=== PATIENT | female | born 1965 | race Caucasian/White ===

== ENCOUNTER → 2016-10-16 | Outpatient (CLI) | payer MEDICAID ==
--- NOTE | 2016-10-17 21:34 | MR ---
EXAMINATION TYPE: MR wrist RT wo con DATE OF EXAM: 10/16/2016 9:22 PM COMPARISON: No radiographic correlation available. HISTORY: 51-year-old female with right wrist pain for many years. TECHNIQUE: Multiplanar, multisequence images of the right wrist were obtained without IV contrast. FINDINGS: There is a small effusion within the radiocarpal and intercarpal joints. No osseous erosions are seen. There is some osteoarthritic changes at the first CMC joint and also at the triscaphe joint characterized by mild subchondral cystic change. In addition, there is an elongated multilocular ganglion cyst measuring 1.6 x 0.8 cm arising from the radial aspect of the radiocarpal joint extending along the volar aspect of the radius superficial to the pronator quadratus but deep to the flexor tendons. There is dramatic degenerative change at the pisiform triquetral joint with osseous edema throughout the pisiform and most of the triquetrum and large subchondral cystic change. There is [id number] ar ticulation with marked remodeling of the pisiform to a semilunar configuration, for example, refer to axial series 801 image 11 AXIAL oblique series 601 image 9. There is some degenerative signal seen within the volar lunotriquetral ligament and additional subcho ndral cystic change and focal bone marrow edema along the ulnar proximal aspect of the lunate bone. Slight positive ulnar variance is suggested. There is a large tear involving the articular disc of th e triangle fibrocartilage and moderate joint fluid within the distal radioulnar joint. There is a sma ll intrasubstance tear that involves the dorsal radioulnar ligament as well and moderate effusion col lecting within the prestyloid recess. Both the fluid in the prestyloid recess and within the distal r adioulnar joint show foci of intermediate signal intensity that could represent synovial proliferatio n or small cartilage fragments. Intermediate signal areas are present within the prestyloid recess Scapholunate ligament appears intact. There is trace tenosynovial fluid seen along the second, third, fourth, and sixth dorsal compartment tendons. Otherwise, the dorsal extensor and volar flexor tendons are within normal limits. The median nerve measures at the upper limits of normal in caliber at 12 sq mm and shows no abnormal fascicular thickening or edema. The visualized musculature is within normal limits. IMPRESSION: 1. Constellation of findings including focal edema and cystic change within the proximal ulnar aspect of the lunate, minimal positive ulnar variance, degenerative signal within the volar lunotriquetral ligament, and a large central tear of the TFC suggest ulnar impaction syndrome. 2. 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 3. Effusion and synovitis within the adjacent prestyloid recess. Additional effusion within the dista l radioulnar joint. Both of these show foci of intermediate signal that could represent chronic synov itis or tiny cartilaginous fragments. 4. A 1.6 x 0.8 cm elongated ganglion cyst along the volar aspect of the distal radius arising from th e radiocarpal joint and mild osteoarthritic changes at the basal joint of the thumb and triscaphe veronica nt.
== END | disposition home or self-care (01) ==
LOC: RADMRIMAIN 19:49
PROVIDERS: ATTEND Orthopaedic Surgery Hand Surgery
DX: M19.031 Primary osteoarthritis, right wrist (principal); M25.831 Other specified joint disorders, right wrist; M67.431 Ganglion, right wrist

== ENCOUNTER → 2017-04-25 | Outpatient (CLI) | payer MEDICAID ==
--- NOTE | 2017-04-25 14:28 | MM ---
Reason for exam: screening (asymptomatic). Last mammogram was performed 1 year and 3 months ago. History: Patient is postmenopausal. Taking estrogen beginning at age 49. Taking progesterone for 2 months beginning at age 45. Physical Findings: A clinical breast exam by your physician is recommended on an annual basis and results should be correlated with mammographic findings. MG 3D Screening Mammo W/Cad Bilateral CC and MLO view(s) were taken. Prior study comparison: January 23, 2016, bilateral MG 3d screening mammo w/cad. September 08, 2014, bilateral MG screening mammo w CAD. The breast tissue is heterogeneously dense. This may lower the sensitivity of mammography. Asymmetric breast tissue in the right breast upper quadrant, stable. There is no discrete abnormality. ASSESSMENT: Negative, BI-RAD 1 RECOMMENDATION: Routine screening mammogram of both breasts in 1 year.
== END | disposition home or self-care (01) ==
LOC: RADMAMWWP 12:54
PROVIDERS: ATTEND Obstetrics & Gynecology
DX: Z12.31 Encounter for screening mammogram for malignant neoplasm of breast (principal)
CPT/HCPCS: 77063; G0202

== ENCOUNTER → 2018-06-09 | Outpatient (CLI) | payer MEDICAID ==
--- NOTE | 2018-06-19 11:46 | MM ---
Reason for exam: screening (asymptomatic). Last mammogram was performed 1 year and 1 month ago. History: Patient is postmenopausal. Taking estrogen for 2 years beginning at age 49. Taking progesterone for 2 years 2 months beginning at age 45. Physical Findings: A clinical breast exam by your physician is recommended on an annual basis and results should be correlated with mammographic findings. MG 3D Screening Mammo W/Cad Bilateral CC and MLO view(s) were taken. Prior study comparison: April 25, 2017, bilateral MG 3d screening mammo w/cad. January 23, 2016, bilateral MG 3d screening mammo w/cad. The breast tissue is heterogeneously dense. This may lower the sensitivity of mammography. There is no discrete abnormality. ASSESSMENT: Negative, BI-RAD 1 RECOMMENDATION: Routine screening mammogram of both breasts in 1 year.
== END | disposition home or self-care (01) ==
LOC: RADMAMWWP 08:26
PROVIDERS: ATTEND Obstetrics & Gynecology
DX: Z12.31 Encounter for screening mammogram for malignant neoplasm of breast (principal)
CPT/HCPCS: 77063; 77067

== ENCOUNTER → 2018-07-17 | Outpatient (CLI) | payer MEDICAID ==
[2018-07-17 12:38] LABS: T4, Free (Free Thyroxine) 0.8 ng/dL (0.80-1.80)
== END | disposition home or self-care (01) ==
LOC: LABWHC1 06:56
PROVIDERS: ATTEND Clinical Nurse Specialist Women's Health
DX: E03.9 Hypothyroidism, unspecified (principal); Z78.0 Asymptomatic menopausal state
CPT/HCPCS: 36415; 84270; 84439; 84481; 84482

== ENCOUNTER → 2018-09-02 | Outpatient (CLI) | payer MEDICAID ==
[2018-09-02 17:13] LABS: T4, Free (Free Thyroxine) 0.9 ng/dL (0.80-1.80)
== END | disposition home or self-care (01) ==
LOC: LABWHC1 06:47
PROVIDERS: ATTEND Clinical Nurse Specialist Women's Health
DX: E03.9 Hypothyroidism, unspecified (principal)
CPT/HCPCS: 36415; 84439; 84481; 84482

== ENCOUNTER → 2018-10-24 | Outpatient (CLI) | payer MEDICAID | END | disposition home or self-care (01) | LOC: LABWHC1 06:56 | PROVIDERS: ATTEND Clinical Nurse Specialist Women's Health | DX: Z78.0 Asymptomatic menopausal state (principal) | CPT/HCPCS: 36415; 82670; 84144; 84403 ==

== ENCOUNTER → 2019-03-10 | Outpatient (CLI) | payer MEDICAID ==
[2019-03-10 16:32] LABS: T4, Free (Free Thyroxine) 0.9 ng/dL (0.80-1.80)
== END ==
LOC: LABWHC1 07:28
PROVIDERS: ATTEND Clinical Nurse Specialist Women's Health
DX: E03.9 Hypothyroidism, unspecified (principal)
CPT/HCPCS: 36415; 84439; 84481; 84482

== ENCOUNTER → 2019-07-22 | Outpatient (CLI) | payer MEDICAID ==
--- NOTE | 2019-07-23 12:19 | MM ---
Reason for exam: screening (asymptomatic). Last mammogram was performed 1 year and 1 month ago. History: Patient is postmenopausal. Taking estrogen for 3 years beginning at age 49. Taking progesterone for 3 years 2 months beginning at age 45. Took other hormone for 3 years. Physical Findings: A clinical breast exam by your physician is recommended on an annual basis and results should be correlated with mammographic findings. MG 3D Screening Mammo W/Cad Bilateral CC and MLO view(s) were taken. Prior study comparison: June 09, 2018, bilateral MG 3d screening mammo w/cad. April 25, 2017, bilateral MG 3d screening mammo w/cad. The breast tissue is heterogeneously dense. This may lower the sensitivity of mammography. No suspicious abnormality. No significant changes when compared with prior studies. ASSESSMENT: Negative, BI-RAD 1 RECOMMENDATION: Routine screening mammogram of both breasts in 1 year.
== END | disposition home or self-care (01) ==
LOC: RADMAMWWP 09:23
PROVIDERS: ATTEND Obstetrics & Gynecology
DX: Z12.31 Encounter for screening mammogram for malignant neoplasm of breast (principal)
CPT/HCPCS: 77063; 77067

== ENCOUNTER → 2019-12-08 | Outpatient (CLI) | payer MEDICAID ==
[2019-12-08 12:44] LABS: Estradiol 216.7 pg/mL; Prolactin 7.9 ng/mL (2.8-29.2)
[2019-12-08 12:59] LABS: Hemoglobin A1C 5.1 % (4.0-6.0)
== END | disposition home or self-care (01) ==
LOC: LABWHC1 06:56
PROVIDERS: ATTEND Obstetrics & Gynecology
DX: E03.9 Hypothyroidism, unspecified (principal); E34.9 Endocrine disorder, unspecified; Z78.0 Asymptomatic menopausal state
CPT/HCPCS: 36415; 82670; 83036; 84146; 84403; 84439; 84443; 84481; 84482

== ENCOUNTER 2020-02-03 08:32 | Emergency (ER) | payer MEDICAID ==
[2020-02-03 08:39] VITALS: RESP 18
[2020-02-03] MEDS ORDERED: SODIUM CHLORIDE 0.9% 1,000 ML IV STA (08:48)
--- NOTE | 2020-02-03 08:51 | ED ---
Abdominal Pain HPI - General Source: patient, RN notes reviewed Mode of arrival: ambulatory Limitations: no limitations <Chris Marlow - Last Filed: 02/03/20 10:54> <Padmini Nassar - Last Filed: 02/03/20 22:41> - General Chief Complaint: Abdominal Pain Stated Complaint: ABD pain Time Seen by Provider: 02/03/20 08:40 - History of Present Illness Initial Comments: 54-year-old female presents emergency Department chief complaint severe left lower quadrant abdominal pain. Patient states that she woke up this morning and did not feel well. Patient did have a bowel movement this morning and states it did not help. Patient states that she has minimal nausea no vomiting denies any fevers or chills. She states her last week she had some left flank pain but that has resolved. 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 There is concern about possible hernia. She did state that she contacted Dr. Joy, who did recommend her to come emergency department for evaluation. Patient has no mental dysuria but states that she has pressure in her lower abdomen. (Chris Marlow) - Related Data Home Medications Medication Instructions Recorded Confirmed Acetaminophen/Diphenhydramine 0.5 tab PO HS PRN 02/03/20 02/03/20 [Tylenol PM 500-25mg] Adk 1 tab PO Q48H 02/03/20 02/03/20 Dim 1 tab PO Q48H 02/03/20 02/03/20 Iodine 1 tab PO Q48H 02/03/20 02/03/20 Progesterone, Micronized 400 mg PO HS 02/03/20 02/03/20 [Progesterone] Thyroid,Pork [[place] Thyroid] 60 mg PO DAILY@1530 02/03/20 02/03/20 Thyroid,Pork [[place] Thyroid] 90 mg PO DAILY@0800 02/03/20 02/03/20 Previous Rx's Medication Instructions Recorded Nitrofurantoin Monohyd/M-Cryst 100 mg PO Q12HR #10 cap 02/03/20 [Macrobid] Allergies Allergy/AdvReac Type Severity Reaction Status Date / Time No Known Allergies Allergy Verified 02/03/20 09:01 Review of Systems ROS Other: All systems not noted in ROS Statement are negative. <Chris Marlow M - Last Filed: 02/03/20 10:54> ROS Other: All systems not noted in ROS Statement are negative. <Padmini Nassar - Last Filed: 02/03/20 22:41> ROS Statement: Those systems with pertinent positive or pertinent negative responses have been documented in the HPI. Past Medical History Past Medical History: No Reported History History of Any Multi-Drug Resistant Organisms: None Reported Past Surgical History: Orthopedic Surgery Additional Past Surgical History / Comment(s): D&C, rt hand reconstruction Past Anesthesia/Blood Transfusion Reactions: No Reported Reaction Past Psychological History: No Psychological Hx Reported Smoking Status: Never smoker Past Alcohol Use History: Occasional Past Drug Use History: None Reported - Past Family History Mother Family Medical History: No Reported History Father Family Medical History: Cancer <EleChris Wallace - Last Filed: 02/03/20 10:54> General Exam Limitations: no limitations General appearance: alert, in no apparent distress Head exam: Present: atraumatic, normocephalic, normal inspection Eye exam: Present: normal appearance, PERRL, EOMI. Absent: scleral icterus, conjunctival injection, periorbital swelling ENT exam: Present: normal exam, normal oropharynx, mucous membranes moist Neck exam: Present: normal inspection, full ROM. Absent: tenderness, meningismus, lymphadenopathy Respiratory exam: Present: normal lung sounds bilaterally. Absent: respiratory distress, wheezes, rales, rhonchi, stridor Cardiovascular Exam: Present: regular rate, normal rhythm, normal heart sounds. Absent: systolic murmur, diastolic murmur, rubs, gallop, clicks GI/Abdominal exam: Present: soft, tenderness (Moderate left lower quadrant), normal bowel sounds, hernia (Left lower). Absent: distended, guarding, rebound, rigid Neurological exam: Present: alert, oriented X3 Skin exam: Present: warm, dry, intact, normal color. Absent: rash <LaurenChris mott - Last Filed: 02/03/20 10:54> Course Vital Signs 02/03/20 02/03/20 08:34 10:18 Temperature 97.8 F 98.0 F Pulse Rate 71 75 Respiratory 18 18 Rate Blood Pressure 164/75 127/89 O2 Sat by Pulse 100 98 Oximetry Medical Decision Making - Lab Data Result diagrams: 02/03/20 09:02 02/03/20 09:02 <Chris Marlow - Last Filed: 02/03/20 10:54> - Lab Data Result diagrams: 02/03/20 09:02 02/03/20 09:02 <Padmini Nassar - Last Filed: 02/03/20 22:41> - Medical Decision Making 54-year-old female presents emergency from for abdominal pain. CT shows evidence of enteritis and left inguinal hernia containing fat. This was reduced with no difficulty. Patient does have nitrite positive urine will be treated with antibiotics. Patient's case discussed with Dr. Joy in which the patient will follow-up later today or tomorrow. Patient is stable for discharge return parameters were discussed. (Chris Marlow) I was available for consultation in the emergency department. The history and physical exam were done by the midlevel provider. I was consulted for this patients care. I reviewed the case with the midlevel provider and based on their presentation of the patient, I agree with the assessment, medical decision making and plan of care as documented. Chart was dictated using [employer] dictation software. Attempts were made to correct any dictation errors however some typographical errors may persist. Patient was seen during a national state of emergency due to the Covid-19 pandem ic. (Padmini Nassar) - Lab Data Lab Results 02/03/20 02/03/20 02/03/20 Range/Units 09:01 09:02 09:02 WBC 6.0 (3.8-10.6) k/uL RBC 5.69 H (3.80-5.40) m/uL Hgb 16.6 H (11.4-16.0) gm/dL Hct 51.9 H (34.0-46.0) % MCV 91.1 (80.0-100.0) fL MCH 29.2 (25.0-35.0) pg MCHC 32.1 (31.0-37.0) g/dL RDW 12.6 (11.5-15.5) % Plt Count 310 (150-450) k/uL Neutrophils % 76 % Lymphocytes % 17 % Monocytes % 5 % Eosinophils % 1 % Basophils % 0 % Neutrophils # 4.6 (1.3-7.7) k/uL Lymphocytes # 1.0 (1.0-4.8) k/uL Monocytes # 0.3 (0-1.0) k/uL Eosinophils # 0.0 (0-0.7) k/uL Basophils # 0.0 (0-0.2) k/uL PT 9.5 (9.0-12.0) sec INR 0.9 (<1.2) APTT 21.8 L (22.0-30.0) sec Sodium (137-145) mmol/L Potassium (3.5-5.1) mmol/L Chloride (98-107) mmol/L Carbon Dioxide (22-30) mmol/L Anion Gap mmol/L BUN (7-17) mg/dL Creatinine (0.52-1.04) mg/dL Est GFR (CKD-EPI)AfAm (>60 ml/min/1.73 sqM) Est GFR (CKD-EPI)NonAf (>60 ml/min/1.73 sqM) Glucose (74-99) mg/dL Lactic Ac Sepsis Rflx Plasma Lactic Acid Jose G (0.7-2.0) mmol/L Calcium (8.4-10.2) mg/dL Total Bilirubin (0.2-1.3) mg/dL AST (14-36) U/L ALT (4-34) U/L Alkaline Phosphatase (38-126) U/L Total Protein (6.3-8.2) g/dL Albumin (3.5-5.0) g/dL Lipase (23-300) U/L Urine Color Dark Brown Urine Appearance Clear (Clear) Urine pH 6.0 (5.0-8.0) Ur Specific [place] 1.015 (1.001-1.035) Urine Protein Negative (Negative) Urine Glucose (UA) Negative (Negative) Urine Ketones Negative (Negative) Urine Blood Negative (Negative) Urine Nitrite Positive H (Negative) Urine Bilirubin 1+ H (Negative) Urine Urobilinogen 3.0 (<2.0) mg/dL Ur Leukocyte Esterase Negative (Negative) Urine RBC 3 (0-5) /hpf Urine WBC <1 (0-5) /hpf Ur Squamous Epith Cells 1 (0-4) /hpf 02/03/20 02/03/20 02/03/20 Range/Units 09:02 09:02 10:18 WBC (3.8-10.6) k/uL RBC (3.80-5.40) m/uL Hgb (11.4-16.0) gm/dL Hct (34.0-46.0) % MCV (80.0-100.0) fL MCH (25.0-35.0) pg MCHC (31.0-37.0) g/dL RDW (11.5-15.5) % Plt Count (150-450) k/uL Neutrophils % % Lymphocytes % % Monocytes % % Eosinophils % % Basophils % % Neutrophils # (1.3-7.7) k/uL Lymphocytes # (1.0-4.8) k/uL Monocytes # (0-1.0) k/uL Eosinophils # (0-0.7) k/uL Basophils # (0-0.2) k/uL PT (9.0-12.0) sec INR (<1.2) APTT (22.0-30.0) sec Sodium 138 (137-145) mmol/L Potassium 4.8 (3.5-5.1) mmol/L Chloride 102 (98-107) mmol/L Carbon Dioxide 23 (22-30) mmol/L Anion Gap 13 mmol/L BUN 22 H (7-17) mg/dL Creatinine 0.62 (0.52-1.04) mg/dL Est GFR (CKD-EPI)AfAm >90 (>60 ml/min/1.73 sqM) Est GFR (CKD-EPI)NonAf >90 (>60 ml/min/1.73 sqM) Glucose 109 H (74-99) mg/dL Lactic Ac Sepsis Rflx Y Plasma Lactic Acid Jose G 2.1 H* (0.7-2.0) mmol/L Calcium 10.0 (8.4-10.2) mg/dL Total Bilirubin 0.6 (0.2-1.3) mg/dL AST 33 (14-36) U/L ALT 22 (4-34) U/L Alkaline Phosphatase 71 (38-126) U/L Total Protein 9.1 H (6.3-8.2) g/dL Albumin 5.5 H (3.5-5.0) g/dL Lipase 101 (23-300) U/L Urine Color Urine Appearance (Clear) Urine pH (5.0-8.0) Ur Specific [place] (1.001-1.035) Urine Protein (Negative) Urine Glucose (UA) (Negative) Urine Ketones (Negative) Urine Blood (Negative) Urine Nitrite (Negative) Urine Bilirubin (Negative) Urine Urobilinogen (<2.0) mg/dL Ur Leukocyte Esterase (Negative) Urine RBC (0-5) /hpf Urine WBC (0-5) /hpf Ur Squamous Epith Cells (0-4) /hpf Disposition Is patient prescribed a controlled substance at d/c from ED?: No Time of Disposition: 10:58 <Chris Marlow - Last Filed: 02/03/20 10:54> <Padmini Nassar - Last Filed: 02/03/20 22:41> Clinical Impression: Left inguinal hernia, Enteritis, UTI (urinary tract infection) Disposition: HOME SELF-CARE Condition: Stable Instructions (If sedation given, give patient instructions): Inguinal Hernia (ED) Additional Instructions: Please return to the Emergency Department if symptoms worsen or any other concerns. Prescriptions: Nitrofurantoin Monohyd/M-Cryst [Macrobid] 100 mg PO Q12HR #10 cap Referrals: Kylee Fiore DO [Primary Care Provider] - 1-2 days
[2020-02-03 09:19] LABS: Appearance,Urine Clear (Clear); Bilirubin,Urine 1+ (Negative); Blood,Urine Negative (Negative); Color,Urine Dark Brown; Glucose,Urine (UA) Negative (Negative); Ketones,Urine Negative (Negative); Leukocyte Esterase,Urine Negative (Negative); Nitrite,Urine Positive (Negative); Protein,Urine Negative (Negative); RBC,Urine 3 /hpf (0-5); Specific Gravity,Urine 1.015 (1.001-1.035); Squamous Epithelial Cell,Urine 1 /hpf (0-4); WBC,Urine <1 /hpf (0-5)
--- NOTE | 2020-02-03 09:57 | CT ---
EXAMINATION TYPE: CT abdomen pelvis w con DATE OF EXAM: 02/03/2020 COMPARISON: None HISTORY: LLQ pain, bulge CT DLP: 628.9 mGycm CONTRAST: CT scan of the abdomen and pelvis is performed without Oral Contrast and with IV Contrast, patient in jected with 100 mL of Isovue 300. FINDINGS: LUNG BASES-: No visible nodule. No infiltrate. LIVER/GB: No calcified gallstones. 1.3 cm lesion inferior tip right hepatic lobe which fills in wit h contrast on the delayed imaging compatible with hemangioma. Subcentimeter cyst near the dome of the liver noted as well. Biliary tree is of normal caliber. PANCREAS: No inflammation. No distinct mass. SPLEEN: No splenic enlargement. No lesion seen. ADRENALS: No nodule. No thickening. KIDNEYS/BLADDER: No hydronephrosis. No nephrolithiasis. No distinct renal mass. Urinary bladder g rossly unremarkable. BOWEL: The appendix is not clearly visualized. No definite right lower quadrant inflammatory process. Fluid-filled distention of small bowel loops may reflect enteritis. Correlate clinically. Normal tianna wel caliber. No inflammation. GENITAL ORGANS: No gross abnormality. LYMPH NODES: No greater than 1cm abdominal or pelvic lymph nodes are appreciated. AORTA: No significant abnormality. OSSEOUS STRUCTURES: No significant abnormality is seen. OTHER: There is left inguinal fat-containing hernia. IMPRESSION: 1. Correlate for small bowel enteritis. 2. Fat-containing left inguinal hernia. 3. Hepatic hemangioma.
[2020-02-03] MEDS ORDERED: KETOROLAC 15 MG/ML 1 ML VIAL IVP STA (10:04)
[2020-02-03 10:07] LABS: Basophils % (A) 0 %; Eosinophils % (A) 1 %; HCT 51.9 % (34.0-46.0); HGB 16.6 gm/dL (11.4-16.0); Lymphocytes % (A) 17 %; MCH 29.2 pg (25.0-35.0); MCHC 32.1 g/dL (31.0-37.0); MCV 91.1 fL (80.0-100.0); Mean Platelet Volume 7.1; Monocytes # (A) 0.3 k/uL (0-1.0); Monocytes % (A) 5 %; Neutrophils # (A) 4.6 k/uL (1.3-7.7); Neutrophils % (A) 76 %; Platelet Count 310 k/uL (150-450); RBC 5.69 m/uL (3.80-5.40); RDW 12.6 % (11.5-15.5)
[2020-02-03 10:16] LABS: ALT 22 U/L (4-34); AST 33 U/L (14-36); African American GFR (CKD) >90 (>60 ml/min/1.73 sqM); Albumin 5.5 g/dL (3.5-5.0); Alkaline Phosphatase 71 U/L (38-126); Anion Gap 13 mmol/L; Blood Urea Nitrogen 22 mg/dL (7-17); Carbon Dioxide 23 mmol/L (22-30); Chloride 102 mmol/L (98-107); Glucose 109 mg/dL (74-99); Non-African American GFR(CKD) >90 (>60 ml/min/1.73 sqM); Potassium 4.8 mmol/L (3.5-5.1); Sodium 138 mmol/L (137-145); Total Bilirubin 0.6 mg/dL (0.2-1.3); Total Protein 9.1 g/dL (6.3-8.2)
[2020-02-03 10:20] VITALS: BP 127/89; PULSE 75; TEMP 98
[2020-02-03 10:21] LABS: INR 0.9 (<1.2)
[2020-02-03 10:22] LABS: Partial Thromboplastin Time 21.8 sec (22.0-30.0); Prothrombin Time 9.5 sec (9.0-12.0)
== END 2020-02-03 11:00 | disposition home or self-care (01) ==
LOC: EC 08:32
DX: K40.90 Unilateral inguinal hernia, without obstruction or gangrene, not specified as recurrent (principal); N39.0 Urinary tract infection, site not specified; K52.9 Noninfective gastroenteritis and colitis, unspecified; Z79.899 Other long term (current) drug therapy; Z79.890 Hormone replacement therapy
CPT/HCPCS: 99284; 96374; 96361; 36415; 80053; 83605; 83690; 85025; 85610; 85730; 81001; 74177; J1885; Q9967

== ENCOUNTER → 2020-08-26 | Outpatient (CLI) | payer MEDICAID ==
[2020-08-26 12:12] LABS: T4, Free (Free Thyroxine) 0.8 ng/dL (0.80-1.80)
[2020-08-26 12:57] LABS: Estradiol 97.1 pg/mL
== END | disposition home or self-care (01) ==
LOC: LABWHC1 06:57
PROVIDERS: ATTEND Obstetrics & Gynecology
DX: E07.9 Disorder of thyroid, unspecified (principal); N95.1 Menopausal and female climacteric states
CPT/HCPCS: 36415; 82670; 83001; 84144; 84403; 84439; 84443; 84481; 84482

== ENCOUNTER → 2020-09-16 | Outpatient (CLI) | payer MEDICAID ==
--- NOTE | 2020-09-19 10:46 | MM ---
Reason for exam: screening (asymptomatic). Last mammogram was performed 1 year and 2 months ago. History: Patient is postmenopausal. Taking estrogen for 4 years beginning at age 49. Taking progesterone for 4 years 2 months beginning at age 45. Took other hormone for 3 years. Physical Findings: A clinical breast exam by your physician is recommended on an annual basis and results should be correlated with mammographic findings. MG 3D Screening Mammo W/Cad Bilateral CC and MLO view(s) were taken. Prior study comparison: July 22, 2019, bilateral MG 3d screening mammo w/cad. June 09, 2018, bilateral MG 3d screening mammo w/cad. The breast tissue is heterogeneously dense. This may lower the sensitivity of mammography. There is no discrete abnormality. No significant changes when compared with prior studies. ASSESSMENT: Negative, BI-RAD 1 RECOMMENDATION: Routine screening mammogram of both breasts in 1 year.
== END | disposition home or self-care (01) ==
LOC: RADMAMWWP 11:12
PROVIDERS: ATTEND Obstetrics & Gynecology
DX: Z12.31 Encounter for screening mammogram for malignant neoplasm of breast (principal); Z78.0 Asymptomatic menopausal state
CPT/HCPCS: 77063; 77067

== ENCOUNTER 2020-11-19 05:02 | Emergency (ER) | payer MEDICAID ==
[2020-11-19 05:18] VITALS: RESP 18; TEMP 97.8
[2020-11-19] MEDS ORDERED: ONDANSETRON 4 MG/2 ML VIAL IVP STA (05:41)
[2020-11-19] MEDS ORDERED: SODIUM CHLORIDE 0.9% 1,000 ML IV STA (05:41)
[2020-11-19] MEDS ORDERED: HYDROmorphone 0.5 MG/0.5 ML SYRINGE IVP STA (05:41)
--- NOTE | 2020-11-19 05:44 | ED ---
Abdominal Pain HPI - General Chief Complaint: Abdominal Pain Stated Complaint: Abd Pain Time Seen by Provider: 11/19/20 05:11 Source: patient Mode of arrival: ambulatory Limitations: no limitations - History of Present Illness MD Complaint: abdominal pain Onset/Timin -: hour(s) Location: diffuse, LLQ Radiation: none Migration to: no migration Severity: moderate Quality: cramping, other (Like gas) Consistency: constant Improves With: nothing Worsens With: nothing Associated Symptoms: nausea, vomiting - Related Data Home Medications Medication Instructions Recorded Confirmed Acetaminophen/Diphenhydramine 0.5 tab PO HS PRN 02/03/20 02/03/20 [Tylenol PM 500-25mg] Adk 1 tab PO Q48H 02/03/20 02/03/20 Dim 1 tab PO Q48H 02/03/20 02/03/20 Iodine 1 tab PO Q48H 02/03/20 02/03/20 Progesterone, Micronized 400 mg PO HS 02/03/20 02/03/20 [Progesterone] Thyroid,Pork [[place] Thyroid] 60 mg PO DAILY@1530 02/03/20 02/03/20 Thyroid,Pork [[place] Thyroid] 90 mg PO DAILY@0800 02/03/20 02/03/20 Previous Rx's Medication Instructions Recorded Nitrofurantoin Monohyd/M-Cryst 100 mg PO Q12HR #10 cap 02/03/20 [Macrobid] Allergies Allergy/AdvReac Type Severity Reaction Status Date / Time No Known Allergies Allergy Verified 11/19/20 05:18 Review of Systems ROS Statement: Those systems with pertinent positive or pertinent negative responses have been documented in the HPI. ROS Other: All systems not noted in ROS Statement are negative. Constitutional: Denies: fever, chills Respiratory: Denies: cough, dyspnea Cardiovascular: Denies: chest pain, palpitations Gastrointestinal: Reports: abdominal pain, nausea, vomiting, constipation. Denies: diarrhea, melena, hematochezia Genitourinary: Denies: dysuria, hematuria Musculoskeletal: Denies: back pain Skin: Denies: rash Neurological: Denies: headache, weakness, numbness Past Medical History Past Medical History: No Reported History History of Any Multi-Drug Resistant Organisms: None Reported Past Surgical History: Orthopedic Surgery Additional Past Surgical History / Comment(s): D&C, rt hand reconstruction Past Anesthesia/Blood Transfusion Reactions: No Reported Reaction Past Psychological History: No Psychological Hx Reported Smoking Status: Never smoker Past Alcohol Use History: Occasional Past Drug Use History: None Reported - Past Family History Mother Family Medical History: No Reported History Father Family Medical History: Cancer General Exam Limitations: no limitations General appearance: alert, in no apparent distress Head exam: Present: atraumatic, normocephalic Eye exam: Present: normal appearance. Absent: scleral icterus, conjunctival injection ENT exam: Present: normal oropharynx Neck exam: Present: normal inspection Respiratory exam: Present: normal lung sounds bilaterally. Absent: respiratory distress, wheezes, rales, rhonchi, stridor Cardiovascular Exam: Present: regular rate, normal rhythm, normal heart sounds. Absent: systolic murmur, diastolic murmur, rubs, gallop GI/Abdominal exam: Present: soft, tenderness, guarding, hernia (The patient has a left inguinal hernia which is firm and tender.). Absent: distended, rebound, rigid, mass, pulsatile mass Extremities exam: Present: normal inspection, normal capillary refill. Absent: pedal edema, calf tenderness Back exam: Present: normal inspection. Absent: CVA tenderness (R), CVA tenderness (L) Neurological exam: Present: alert Skin exam: Present: warm, dry, intact, normal color. Absent: rash Course Vital Signs 11/19/20 05:16 Temperature 97.8 F Pulse Rate 79 Respiratory 18 Rate Blood Pressure 152/93 O2 Sat by Pulse 99 Oximetry Medical Decision Making - Medical Decision Making Following analgesia I was able to reduce the patient's hernia at the bedside. She is starting to feel relief of symptoms. - Lab Data Result diagrams: 11/19/20 06:02 11/19/20 06:02 Lab Results 11/19/20 11/19/20 11/19/20 Range/Units 06:02 06:02 06:02 WBC 9.3 (3.8-10.6) k/uL RBC 5.30 (3.80-5.40) m/uL Hgb 15.7 (11.4-16.0) gm/dL Hct 47.5 H (34.0-46.0) % MCV 89.7 (80.0-100.0) fL MCH 29.7 (25.0-35.0) pg MCHC 33.1 (31.0-37.0) g/dL RDW 13.1 (11.5-15.5) % Plt Count 297 (150-450) k/uL MPV 6.6 Neutrophils % 91 % Lymphocytes % 6 % Monocytes % 2 % Eosinophils % 0 % Basophils % 0 % Neutrophils # 8.5 H (1.3-7.7) k/uL Lymphocytes # 0.5 L (1.0-4.8) k/uL Monocytes # 0.2 (0-1.0) k/uL Eosinophils # 0.0 (0-0.7) k/uL Basophils # 0.0 (0-0.2) k/uL Sodium 141 (137-145) mmol/L Potassium 4.0 (3.5-5.1) mmol/L Chloride 103 (98-107) mmol/L Carbon Dioxide 27 (22-30) mmol/L Anion Gap 11 mmol/L BUN 15 (7-17) mg/dL Creatinine 0.65 (0.52-1.04) mg/dL Est GFR (CKD-EPI)AfAm >90 (>60 ml/min/1.73 sqM) Est GFR (CKD-EPI)NonAf >90 (>60 ml/min/1.73 sqM) Glucose 119 H (74-99) mg/dL Plasma Lactic Acid Jose G 1.2 (0.7-2.0) mmol/L Calcium 10.2 (8.4-10.2) mg/dL Total Bilirubin 0.7 (0.2-1.3) mg/dL AST 32 (14-36) U/L ALT 24 (4-34) U/L Alkaline Phosphatase 70 (38-126) U/L Total Protein 8.1 (6.3-8.2) g/dL Albumin 5.1 H (3.5-5.0) g/dL Amylase 69 (30-110) U/L Lipase 45 (23-300) U/L Disposition Clinical Impression: Incarcerated hernia Disposition: HOME SELF-CARE Condition: Good Instructions (If sedation given, give patient instructions): Inguinal Hernia (ED) Is patient prescribed a controlled substance at d/c from ED?: No Referrals: Kylee Fiore DO [Primary Care Provider] - 1-2 days Yogesh Joy MD [Medical Doctor] - 1-2 days
[2020-11-19 06:22] LABS: Basophils % (A) 0 %; Eosinophils % (A) 0 %; HCT 47.5 % (34.0-46.0); HGB 15.7 gm/dL (11.4-16.0); Lymphocytes # (A) 0.5 k/uL (1.0-4.8); Lymphocytes % (A) 6 %; MCH 29.7 pg (25.0-35.0); MCHC 33.1 g/dL (31.0-37.0); MCV 89.7 fL (80.0-100.0); Mean Platelet Volume 6.6; Monocytes # (A) 0.2 k/uL (0-1.0); Monocytes % (A) 2 %; Neutrophils # (A) 8.5 k/uL (1.3-7.7); Neutrophils % (A) 91 %; Platelet Count 297 k/uL (150-450); RDW 13.1 % (11.5-15.5); WBC 9.3 k/uL (3.8-10.6)
[2020-11-19 06:23] LABS: ALT 24 U/L (4-34); AST 32 U/L (14-36); African American GFR (CKD) >90 (>60 ml/min/1.73 sqM); Albumin 5.1 g/dL (3.5-5.0); Alkaline Phosphatase 70 U/L (38-126); Amylase 69 U/L (30-110); Anion Gap 11 mmol/L; Blood Urea Nitrogen 15 mg/dL (7-17); Calcium 10.2 mg/dL (8.4-10.2); Carbon Dioxide 27 mmol/L (22-30); Chloride 103 mmol/L (98-107); Glucose 119 mg/dL (74-99); Lipase 45 U/L (23-300); Non-African American GFR(CKD) >90 (>60 ml/min/1.73 sqM); Sodium 141 mmol/L (137-145); Total Bilirubin 0.7 mg/dL (0.2-1.3); Total Protein 8.1 g/dL (6.3-8.2)
[2020-11-19 07:35] VITALS: BP 107/65; PULSE 89
== END 2020-11-19 07:35 | disposition home or self-care (01) ==
LOC: EC 05:02
DX: K46.0 Unspecified abdominal hernia with obstruction, without gangrene (principal); K40.90 Unilateral inguinal hernia, without obstruction or gangrene, not specified as recurrent; K59.00 Constipation, unspecified; R11.2 Nausea with vomiting, unspecified
CPT/HCPCS: 80053; 82150; 83605; 83690; 85025; 99284; 96374; 96375; 96361 ×2; J2405; J1170

== ENCOUNTER 2020-12-21 11:44 | Day surgery (SDC) | payer MEDICAID ==
[2020-12-16 16:23] VITALS: BMI 22.4
[~2020-12-21 11:44] MED LIST: LACTATED RINGERS 1,000 ML IV SCH; LIDOCAINE 1% (10MG/ML) FOR IV START INTRADERMA PRN
[2020-12-21 12:29] VITALS: RESP 16; TEMP 98.3
[2020-12-21] MEDS ORDERED: GLYCOPYRROLATE 0.2 MG/ML 2 ML VIAL ONE (12:37)
[2020-12-21] MEDS ORDERED: PROPOFOL 10 MG/ML 20 ML VIAL IV ONE (12:37)
[2020-12-21] MEDS ORDERED: fentaNYL (PF) 50 MCG/ML 2 ML AMP ONE (12:37)
[2020-12-21] MEDS ORDERED: MIDAZOLAM 2 MG/2 ML VIAL ONE (12:37)
[2020-12-21] MEDS ORDERED: LIDOCAINE 1% INJ 10MG/ML (20 ML MDV) ONE (12:37)
--- NOTE | 2020-12-21 13:04 | P.PCN ---
Date of Procedure: 12/21/20 Procedure(s) Performed: Brief history: Patient is a pleasant 55-year-old white female scheduled for an elective upper endoscopy as well as colonoscopy as a part of evaluation of atypical chest pain/chest pressure for the last 4 months duration. She also has been having irregular bowel movements. Procedure performed: Esophagogastroduodenoscopy with biopsy Colonoscopy Preoperative diagnosis: Atypical chest pain Change in bowel habits Anesthesia: MAC Procedure: After informed consent was obtained from the patient was brought into the endoscopy unit and IV sedation was administered by anesthesia under continuous monitoring. Initially upper endoscopy was done. The Olympus GF 160 video endoscope was inserted inserted into the mouth and esophagus intubated without any difficulty and was gradually advanced into the stomach and duodenum and carefully examined. The bulb and second part of the duodenum appeared normal. The scope was then withdrawn into the stomach adequately insufflated with air and upon careful examination the antrum and mild gastritis and biopsies were done from this area. The body, cardia and fundus appeared normal. The scope was then withdrawn into the esophagus. The GE junction was located at 40 cm to the incisors. It appeared regular with no erythema erosions or ulcerations. Rest of the esophagus appeared normal. as his were done from the distal esophagus Patient tolerated the procedure well. At this time the patient continued to remain sedation. Initial digital rectal examination was normal. Olympus CF 160 video colonoscope was then inserted into the rectum and gradually advanced to the cecum with moderate to severe difficulty. Careful examination was performed as the scope was gradually being withdrawn. The prep was excellent. The cecum, ascending colon, transverse colon, descending colon, sigmoid colon and rectum appeared normal. Retroflexion was performed in the rectum and no lesions were noted. Patient tolerated the procedure well. Impression: 1. Upper endoscopy revealed mild antral gastritis but no evidence of esophagitis 2. Colonoscopy was essentially within normal limits with no evidence of colitis or colorectal neoplasia Recommendations: Findings of this examination were discussed with the patient as well as her fa gertrudis. She was advised to continue with Prilosec 20 mg daily. Follow-up with the biopsy results. Recommend repeat screening colonoscopy in 10 years.
[2020-12-21 13:14] VITALS: PULSE 86
[2020-12-21 13:37] VITALS: BP 135/59
== END 2020-12-21 14:02 | disposition home or self-care (01) ==
LOC: ORWHC2ENDO 11:44
PROVIDERS: ATTEND Internal Medicine Gastroenterology
DX: K29.70 Gastritis, unspecified, without bleeding (principal); K20.90 Esophagitis, unspecified without bleeding; R19.4 Change in bowel habit; E07.9 Disorder of thyroid, unspecified; Z79.890 Hormone replacement therapy
CPT/HCPCS: 88305; 45378; 43239; J2250; J2001; J3010; J2704

== ENCOUNTER → 2020-12-29 | Outpatient (CLI) | payer MEDICAID ==
[2020-12-29 07:47] LABS: Basophils % (A) 1 %; Eosinophils # (A) 0.2 k/uL (0-0.7); Eosinophils % (A) 5 %; HCT 41.8 % (34.0-46.0); HGB 14.4 gm/dL (11.4-16.0); Lymphocytes # (A) 1.5 k/uL (1.0-4.8); Lymphocytes % (A) 38 %; MCH 30.6 pg (25.0-35.0); MCHC 34.4 g/dL (31.0-37.0); Mean Platelet Volume 6.6; Monocytes # (A) 0.3 k/uL (0-1.0); Monocytes % (A) 7 %; Neutrophils # (A) 1.9 k/uL (1.3-7.7); Neutrophils % (A) 47 %; Platelet Count 274 k/uL (150-450); RDW 12.5 % (11.5-15.5); WBC 3.9 k/uL (3.8-10.6)
== END | disposition home or self-care (01) ==
LOC: LABPAT 06:58
PROVIDERS: ATTEND Anesthesiology
DX: Z01.812 Encounter for preprocedural laboratory examination (principal)
CPT/HCPCS: 36415; 85025

== ENCOUNTER 2020-12-30 07:39 | Day surgery (SDC) | payer MEDICAID ==
[2020-12-28 15:44] VITALS: BMI 22.4
[~2020-12-30 07:39] MED LIST changes: +ACETAMINOPHEN TAB 500 MG TAB PO PRN; +DEXAMETHASONE SOD PHOSPHATE 4 MG/ML 1 ML VIAL IV ONE; +HEPARIN SODIUM,PORCINE/PF 5,000 UNIT/0.5 ML SYRINGE SQ PRN; +HYDROmorphone 0.5 MG/0.5 ML SYRINGE IVP PRN; +ONDANSETRON 4 MG/2 ML VIAL IVP ONE; +SCOPOLAMINE 1.5MG/72HR PATCH TRANSDERM ONE
--- NOTE | 2020-12-30 08:00 | P.GSHP ---
History of Present Illness H&P Date: 12/30/20 55-year-old female known to our office. Patient last seen in January. Patient with complaints of a hernia left groin. Mild discomfort at times. Has gotten slightly larger. No symptoms on the right-hand side. No previous repair. Past Medical History Past Medical History: No Reported History, GERD/Reflux Additional Past Medical History / Comment(s): "stomach issues" History of Any Multi-Drug Resistant Organisms: None Reported Past Surgical History: Orthopedic Surgery Additional Past Surgical History / Comment(s): D&C, rt hand reconstruction Past Anesthesia/Blood Transfusion Reactions: No Reported Reaction Smoking Status: Never smoker - Past Family History Mother Family Medical History: No Reported History Father Family Medical History: Cancer Medications and Allergies Home Medications Medication Instructions Recorded Confirmed Type Acetaminophen/Diphenhydramine 0.5 tab PO HS PRN 02/03/20 12/30/20 History [Tylenol PM 500-25mg] Adk 1 tab PO DAILY 02/03/20 12/30/20 History Dim 1 tab PO DAILY 02/03/20 12/30/20 History Progesterone, Micronized 400 mg PO HS 02/03/20 12/30/20 History [Progesterone] Thyroid,Pork [[place] Thyroid] 60 mg PO 1530 02/03/20 12/30/20 History Thyroid,Pork [[place] Thyroid] 90 mg PO DAILY@0800 02/03/20 12/30/20 History Aspirin [Adult Low Dose Aspirin EC] 81 mg PO DAILY 12/16/20 12/30/20 History Multivitamins, Thera [Multivitamin 1 tab PO DAILY 12/16/20 12/28/20 History (formulary)] Allergies Allergy/AdvReac Type Severity Reaction Status Date / Time No Known Allergies Allergy Verified 12/30/20 07:56 Surgical - Exam Physical exam: General: Well-developed, well-nourished HEENT: Normocephalic, sclerae nonicteric Abdomen: Nontender, nondistended reducible left inguinal hernia Extremities: No edema Neuro: Alert and oriented Assessment and Plan (1) Left inguinal hernia Narrative/Plan: 55-year-old female with symptomatic reducible left inguinal hernia. We'll proceed with robotic-assisted laparoscopic repair left inguinal hernia with mesh, possible bilateral, possible open. Risks of bleeding, infection, recurrence, bladder and bowel injury, numbness, nerve injury, conversion to an open procedure were discussed with the patient. The patient understands and wishes to proceed. Current Visit: Yes Status: Acute Code(s): K40.90 - UNIL INGUINAL HERNIA, W/O OBST OR GANGR, NOT SPCF RECUR SNOMED Code(s): 669367305
[2020-12-30] MEDS ORDERED: fentaNYL (PF) 50 MCG/ML 2 ML AMP ONE (10:05)
[2020-12-30] MEDS ORDERED: MIDAZOLAM 2 MG/2 ML VIAL ONE (10:05)
[2020-12-30] MEDS ORDERED: ePHEDrine SULFATE/0.9% NACL/PF 50 MG/5 ML SYRINGE IV ONE (10:05)
[2020-12-30] MEDS ORDERED: PROPOFOL 10 MG/ML 20 ML VIAL IV ONE (10:05)
[2020-12-30] MEDS ORDERED: SUCCINYLCHOLINE CHLORIDE 100 MG/5 ML SYR IV ONE (10:05)
[2020-12-30] MEDS ORDERED: ROCURONIUM 10 MG/ML (5 ML VIAL) IV ONE (10:05)
[2020-12-30] MEDS ORDERED: LIDOCAINE 1% INJ 10MG/ML (20 ML MDV) ONE (10:05)
[2020-12-30] MEDS ORDERED: PHENYLEPHRINE-0.9% NACL SYG 1,000 MCG/10 ML SYRINGE ONE (10:05)
[2020-12-30] MEDS ORDERED: GLYCOPYRROLATE 0.2 MG/ML 2 ML VIAL ONE (10:05)
[2020-12-30] MEDS ORDERED: NEOSTIGMINE 1 MG/ML 10 ML VIAL ONE (10:05)
[2020-12-30] MEDS ORDERED: LACTATED RINGERS 1,000 ML IV ONE (10:20)
[2020-12-30] MEDS ORDERED: BUPIVACAINE (PF) 0.25% 30 ML VIAL SQ ONE (10:30)
[2020-12-30] MEDS ORDERED: traMADol 50 MG TAB PO PRN (12:06)
--- NOTE | 2020-12-30 12:11 | P.OP ---
Date of Procedure: 12/30/20 Procedure(s) Performed: PREOPERATIVE DIAGNOSIS: Left groin hernia POSTOPERATIVE DIAGNOSIS: Left incarcerated femoral hernia PROCEDURE: Robotic-assisted laparoscopic repair left incarcerated femoral hernia with mesh SURGEON: Dr. Jyo ANESTHESIA: General OPERATIVE PROCEDURE DETAILS: Patient was placed in the operating table in the supine position. The patient was placed under general anesthesia. The abdomen was prepped and draped in usual sterile fashion. A small curvilinear supraumbilical incision was made. The fascia was retracted anteriorly with Irving forceps. The Veress needle was inserted. The saline drop test was normal. Insufflation took place to 15 mmHg. An 8 mm trocar was placed into the peritoneal cavity. 2 additional 8 mm trochars were placed in the right upper quadrant and left upper quadrant under visualization. The robotic arms were then brought in and docked into place. The fenestrated bipolar was used in the left arm and the laparoscopic tal was utilized in the right arm. A 30 8 mm scope was used in the up position. The peritoneal cavity was inspected. The patient had no visible hernia on the right-hand side. It should be noted the patient's bladder was moderately full. On the left-hand side an obvious hernia was seen and I suspected at that time it was probably a femoral hernia. The peritoneum was incised in a horizontal fashion cephalad to the internal inguinal ring. Following that careful dissection of the preperitoneal space took place. This took place using both electrocautery, sharp dissection but primarily blunt dissection. Visualization of the pubic tubercle and Dvaid's ligament took place medially. Full dissection took place laterally as well. We were able to visualize that this was in fact an incarcerated femoral hernia. The hernia sac was fully dissected. Once we had adequate space the extra-large Bard 3-D mid mesh was advanced into the preperitoneal space and flattened out appropriately to cover all potential hernia sites. No sutures were used. The peritoneal defect was then closed using a absorbable 2-0 VLok suture. The hernia sac was incorporated into the peritoneal closure to help prevent future recurrence. The pneumoperitoneum was then evacuated. The skin of all 3 sites was closed using a 4-0 Monocryl stitch. Skin glue was then applied. HERNIA CHARACTERISTICS: Length: 3 Width: 1.5 Type: Femoral incarcerated TYPE OF MESH USED: Bard 3-D mid XL LOCATION OF MESH: Preperitoneal FIXATION: None DISPOSITION: Stable to recovery room
[2020-12-30 12:22] VITALS: TEMP 97.4
[2020-12-30 12:23] VITALS: RESP 16
[2020-12-30 13:55] VITALS: BP 121/80; PULSE 76
[2020-12-30] MEDS ORDERED: IBUPROFEN 600 MG TAB PO SCH (15:00)
[2020-12-30] MEDS ORDERED: ACETAMINOPHEN TAB 325 MG TAB PO SCH (18:00)
== END 2020-12-30 14:40 | disposition home or self-care (01) ==
LOC: OR 07:39
PROVIDERS: ATTEND Surgery
DX: K41.30 Unilateral femoral hernia, with obstruction, without gangrene, not specified as recurrent (principal); Z79.82 Long term (current) use of aspirin; K21.9 Gastro-esophageal reflux disease without esophagitis; Z80.9 Family history of malignant neoplasm, unspecified
CPT/HCPCS: 49553; C1781; J2250; J1100; J2710; J0690; J2405; J2001; J3010; J2370; J0330; J2704; J1170; J1644

== ENCOUNTER → 2021-03-30 | Outpatient (CLI) | payer MEDICAID ==
[2021-03-31 21:07] LABS: Estradiol 72.9 pg/mL; Follicle Stimulating Hormone 38.4 mIU/mL
== END | disposition home or self-care (01) ==
LOC: LABWHC1 09:33
PROVIDERS: ATTEND Obstetrics & Gynecology
DX: N95.1 Menopausal and female climacteric states (principal); R45.4 Irritability and anger
CPT/HCPCS: 36415; 82670; 83001; 84144; 84403; 84439; 84443; 84481

== ENCOUNTER → 2021-04-13 | Outpatient (CLI) | payer MEDICAID ==
--- NOTE | 2021-04-13 12:40 | XR ---
EXAMINATION TYPE: XR lumbar spine 2 or 3V DATE OF EXAM: 04/13/2021 CLINICAL HISTORY: pain TECHNIQUE: Three views of the lumbar spine are submitted. COMPARISON: None. FINDINGS: There are 5 lumbar type vertebral bodies identified. The lumbar spine shows satisfactory alignment w ithout evidence of acute fracture or dislocation. Vertebral body heights are within normal limits. Disc spaces are within normal limits. The overlying soft tissue appears unremarkable. IMPRESSION: No acute fracture or dislocation is seen in the lumbar spine. ICD 10 NO FRACTURE, INITIAL EVALUATION
== END | disposition home or self-care (01) ==
LOC: RADXRMAIN 12:18
PROVIDERS: ATTEND Nurse Practitioner
DX: M54.50 Low back pain, unspecified (principal)
CPT/HCPCS: 72100

== ENCOUNTER → 2021-05-04 | Outpatient (CLI) | payer MEDICAID, OTHER | END | disposition home or self-care (01) | LOC: LABWHC1 15:45 | PROVIDERS: ATTEND Emergency Medicine | DX: U07.1 COVID-19 (principal) | CPT/HCPCS: 87635 ==

== ENCOUNTER → 2021-06-22 | Outpatient (CLI) | payer MEDICAID, OTHER ==
[2021-06-22 11:08] LABS: Basophils # (A) 0.02 X 10*3/uL (0.00-0.10); Basophils % (A) 0.5 %; Eosinophils # (A) 0.24 X 10*3/uL (0.04-0.35); Eosinophils % (A) 5.6 %; HCT 44.1 % (37.2-46.3); HGB 14.3 g/dL (12.0-15.0); Lymphocytes # (A) 1.51 X 10*3/uL (0.90-5.00); Lymphocytes % (A) 35.4 %; MCHC 32.4 g/dL (32.0-37.0); MCV 89.5 fL (80.0-97.0); Mean Platelet Volume 8.8 fL (9.5-12.2); Monocytes # (A) 0.41 X 10*3/uL (0.20-1.00); Monocytes % (A) 9.6 %; Neutrophils # (A) 2.07 X 10*3/uL (1.80-7.70); Neutrophils % (A) 48.7 %; Platelet Count 301 X 10*3/uL (140-440); RBC 4.93 X 10*6/uL (4.10-5.20); RDW 13.7 % (11.5-14.5); WBC 4.26 X 10*3/uL (4.50-10.00)
[2021-06-22 12:14] LABS: HDL Cholesterol 55.1 mg/dL (40.00-60.00); T4, Free (Free Thyroxine) 0.74 ng/dL (0.800-1.800); Triglycerides 48.3 mg/dL (0.00-149.00)
[2021-06-22 12:24] LABS: Chol/HDL Ratio 3.92 Ratio
== END | disposition home or self-care (01) ==
LOC: LABWHC1 07:23
PROVIDERS: ATTEND Obstetrics & Gynecology
DX: E03.9 Hypothyroidism, unspecified (principal); R06.02 Shortness of breath
CPT/HCPCS: 36415; 80061; 83721; 84439; 84443; 84481; 85025

== ENCOUNTER → 2021-06-30 | Outpatient (CLI) | payer MEDICAID ==
--- NOTE | 2021-06-30 11:14 | P.STRESS ---
- Stress Test Note Stress Test Results/Findings: Exam Performed: Exam Date: Reason for Exam: Height: Weight: Protocol: Stage: Duration of Exercise: Resting Heart Rate: Resting Blood Pressure: Maximum Achieved Heart Rate: Maximum Achieved Blood Pressure: 85% PMHR: 100% PMHR: METS: Technologist Comment: Stress Test Results/Findings: This is a 56-year-old female with history of palpitation and shortness of breath, being evaluated for cardiac status. Stress data Flako blood pressure at rest is 146/102 with pulse rate of 101. Baseline EKG showed sinus rhythm and sinus tachycardia. Patient walked on the John protocol for 10 minutes achieving a maximal heart rate of 163 with a blood pressure 136/87. EKGs taken during and after exercise did not reveal any significant changes from the baseline. Patient did not experience any chest pain. Echo data: Baseline echo images showed normal wall motion and thickening.. Exercise echo images showed augmentation of the wall motion and thickening in all the segments. Final impression: #1. Negative stress test #2 negative stress echo. Addendum: The ascending aorta appeared to be prominent during this test. If clinically indicated, Transthoracic echo could be considered
== END | disposition home or self-care (01) ==
LOC: RADNMMAIN 10:22
PROVIDERS: ATTEND Family Medicine
DX: R06.02 Shortness of breath (principal)
CPT/HCPCS: 93351

== ENCOUNTER → 2021-11-08 | Outpatient (CLI) | payer MEDICAID ==
--- NOTE | 2021-11-09 10:31 | MM ---
Reason for Exam: Screening (asymptomatic). Last mammogram was performed 1 year(s) and 1 month(s) ago. Patient History: Menarche at age 10. First Full-Term at age 16. Postmenopausal. Currently using Estrogen, beginning at age 49 for 4 years. Currently using Progesterone, beginning at age 45 for 4 years, 2 months. Risk Values: Laney 5 year model risk: 1.0%. NCI Lifetime model risk: 5.6%. Film Views: Bilateral CC views were taken. Bilateral MLO views were taken. Prior Study Comparison: 06/09/2018 Bilateral Screening Mammogram, [facility]. 07/22/2019 Bilateral Screening Mammogram, [facility]. 09/16/2020 Bilateral Screening Mammogram, [facility]. Tissue Density: The breast tissue is heterogeneously dense. This may lower the sensitivity of mammography. Findings: Analyzed By CAD. There is no suspicious group of microcalcifications or new suspicious mass in either breast. Overall Assessment: Benign, BI-RAD 2 Management: Screening Mammogram of both breasts in 1 year. A clinical breast exam by your physician is recommended on an annual basis and results should be correlated with mammographic findings. Electronically signed and approved by: Emile Romero M.D. Radiologis
== END | disposition home or self-care (01) ==
LOC: RADMAMWWP 08:24
PROVIDERS: ATTEND Obstetrics & Gynecology
DX: Z12.31 Encounter for screening mammogram for malignant neoplasm of breast (principal); Z78.0 Asymptomatic menopausal state
CPT/HCPCS: 77063; 77067

== ENCOUNTER → 2022-02-20 | Outpatient (CLI) | payer MEDICAID ==
[2022-02-20 15:42] LABS: Estradiol 21.9 pg/mL; Follicle Stimulating Hormone 43.8 mIU/mL
== END | disposition home or self-care (01) ==
LOC: LABWHC1 09:00
PROVIDERS: ATTEND Obstetrics & Gynecology
DX: E03.9 Hypothyroidism, unspecified (principal); N95.1 Menopausal and female climacteric states; R53.83 Other fatigue
CPT/HCPCS: 36415; 82670; 83001; 84144; 84403; 84443; 84481

== ENCOUNTER → 2022-11-20 | Outpatient (CLI) | payer MEDICAID ==
--- NOTE | 2022-11-21 11:37 | MM ---
Reason for Exam: Screening (asymptomatic). Last mammogram was performed 1 year(s) and 1 month(s) ago. Patient History: Menarche at age 10. First Full-Term at age 16. Postmenopausal. Currently using Estrogen, beginning at age 49 for 4 years. Currently using Progesterone, beginning at age 45 for 4 years, 2 months. Risk Values: Laney 5 year model risk: 1.0%. NCI Lifetime model risk: 5.5%. Prior Study Comparison: 01/23/2016 Bilateral Screening Mammogram, [facility]. 04/25/2017 Bilateral Screening Mammogram, [facility]. 06/09/2018 Bilateral Screening Mammogram, [facility]. 07/22/2019 Bilateral Screening Mammogram, [facility]. 09/16/2020 Bilateral Screening Mammogram, [facility]. 11/08/2021 Bilateral MG 3D screening mammo w/cad, [facility]. Tissue Density: The breast tissue is heterogeneously dense. This may lower the sensitivity of mammography. Findings: Analyzed By CAD. There is no suspicious group of microcalcifications or new suspicious mass in either breast. Overall Assessment: Negative, BI-RAD 1 Management: Screening Mammogram of both breasts in 1 year. . Patient should continue monthly self-breast exams. A clinical breast exam by your physician is recommended on an annual basis. This exam should not preclude additional follow-up of suspicious palpable abnormalities. Note on Laney scores and lifetime risk: 1. A Laney score greater than 3% is considered moderate risk. If this is the case, consider specialist referral to assess eligibility for a risk reducing agent. 2. If overall lifetime risk for the development of breast cancer is 20% or higher, the patient may qualify for future screening with alternating mammogram and breast MRI. Electronically signed and approved by: Messi Berrios M.D.
== END | disposition home or self-care (01) ==
LOC: RADMAMWWP 07:08
PROVIDERS: ATTEND Obstetrics & Gynecology
DX: Z12.31 Encounter for screening mammogram for malignant neoplasm of breast (principal); Z78.0 Asymptomatic menopausal state
CPT/HCPCS: 77063; 77067

== ENCOUNTER → 2023-01-14 | Outpatient (CLI) | payer MEDICAID ==
[2023-01-14 15:47] LABS: HCT 43.5 % (37.2-46.3); HGB 14.2 d/dL (12.0-15.0); MCH 30.1 pg (27.0-32.0); MCHC 32.6 d/dL (32.0-37.0); MCV 92.2 FL (80.0-97.0); Mean Platelet Volume 9.3 FL (9.5-12.2); NRBC Per 100 WBC 0 X 10*3/uL (0.00-0.01); Platelet Count 279 X 10*3/uL (140-440); RBC 4.72 X 10*6/uL (4.10-5.20); RDW 13.2 % (11.5-14.5); WBC 3.72 X 10*3/uL (4.50-10.00)
[2023-01-14 16:10] LABS: C Reactive Protein <0.30 mg/dL (0.00-0.80); Estradiol 70.2 pg/mL; T4, Free (Free Thyroxine) 0.78 ng/dL (0.80-1.80)
[2023-01-14 16:32] LABS: Erythrocyte Sedimentation Rate 4 mm/Hr (0-30)
[2023-01-14 16:49] LABS: Follicle Stimulating Hormone 38.4 mIU/mL
[2023-01-15 05:01] LABS: EBV - VCA IgM <10.0 U/mL (<36.0)
== END | disposition home or self-care (01) ==
LOC: LABWHC1 07:14
PROVIDERS: ATTEND Obstetrics & Gynecology
DX: E03.9 Hypothyroidism, unspecified (principal); R53.83 Other fatigue; Z78.0 Asymptomatic menopausal state
CPT/HCPCS: 36415; 82306; 82607; 82670; 83001; 84144; 84403; 84439; 84443; 84481; 84482; 85027; 85652; 86140; 86665

== ENCOUNTER → 2023-12-18 | Outpatient (CLI) | payer MEDICAID ==
--- NOTE | 2023-12-18 13:20 | MM ---
Reason for Exam: Screening (asymptomatic). Last mammogram was performed 1 year(s) and 1 month(s) ago. Patient History: Menarche at age 10. First Full-Term at age 16. Postmenopausal. Currently using Estrogen, beginning at age 49 for 4 years. Currently using Progesterone, beginning at age 45 for 4 years, 2 months. Risk Values: Laney 5 year model risk: 1.0%. NCI Lifetime model risk: 5.3%. Prior Study Comparison: 01/23/2016 Bilateral Screening Mammogram, [facility]. 04/25/2017 Bilateral Screening Mammogram, [facility]. 06/09/2018 Bilateral Screening Mammogram, [facility]. 07/22/2019 Bilateral Screening Mammogram, [facility]. 09/16/2020 Bilateral Screening Mammogram, [facility]. 11/08/2021 Bilateral MG 3D screening mammo w/cad, [facility]. 11/20/2022 Bilateral MG 3D screening mammo w/cad, [facility]. Tissue Density: The breasts are heterogeneously dense, which may obscure small masses. Findings: Analyzed By CAD. Subareolar asymmetric density left MLO view just below the retroareolar plane anterior to middle depth does not persist on nipple in profile view. There is no suspicious group of microcalcifications or new suspicious mass in either breast. Overall Assessment: Negative, BI-RAD 1 Management: Screening Mammogram of both breasts in 1 year. Patient should continue monthly self-breast exams. A clinical breast exam by your physician is recommended on an annual basis. This exam should not preclude additional follow-up of suspicious palpable abnormalities. Note on Laney scores and lifetime risk: 1. A Laney score greater than 3% is considered moderate risk. If this is the case, consider specialist referral to assess eligibility for a risk reducing agent. 2. If overall lifetime risk for the development of breast cancer is 20% or higher, the patient may qualify for future screening with alternating mammogram and breast MRI. Electronically signed and approved by: Lamont Yeh M.D. Radiologist
== END | disposition home or self-care (01) ==
LOC: RADMAMWWP 12:35
PROVIDERS: ATTEND Obstetrics & Gynecology
DX: Z12.31 Encounter for screening mammogram for malignant neoplasm of breast (principal); Z78.0 Asymptomatic menopausal state
CPT/HCPCS: 77063; 77067

== ENCOUNTER → 2024-07-16 | Outpatient (CLI) | payer MEDICAID ==
--- NOTE | 2024-07-16 09:44 | US ---
EXAMINATION TYPE: US abdomen limited DATE OF EXAM: 07/16/2024 COMPARISON: Correlation CT 02/03/2020 CLINICAL INDICATION: Female, 59 years old with history of R10.816 EPIGASTRIC ABDOMINAL TENDERNESS; GE RD, epigastric pain TECHNIQUE: Grayscale and color Doppler imaging of the right upper quadrant was performed. FINDINGS: EXAM MEASUREMENTS: Liver Length: 14.1 cm Gallbladder Wall: 0.2 cm CBD: 0.6 cm Right Kidney: 9. x 4.7 x 4.2 cm Pancreas: wnl Liver: wnl Gallbladder: wnl Evidence for sonographic Black's sign: no CBD: wnl Right Kidney: renal pelvis prominent. No calyceal dilatation to suggest hydronephrosis at this time. IMPRESSION: 1. Mild pelviectasis right kidney may be transient. No kamlesh calyceal dilatation to suggest hydroneph rosis at this time. Short interval follow-up can be considered. 2. Bile duct borderline dilated at 6 mm, unchanged from prior CT, likely age-related change. 3. No gallstones. [facility], Workstation: [email or web address], 07/16/2024 9:42 AM
== END | disposition home or self-care (01) ==
LOC: RADUSWWP 08:01
PROVIDERS: ATTEND Family Medicine
DX: N28.89 Other specified disorders of kidney and ureter (principal); K83.8 Other specified diseases of biliary tract; K21.9 Gastro-esophageal reflux disease without esophagitis
CPT/HCPCS: 76705

== ENCOUNTER → 2024-09-17 | Outpatient (CLI) | payer MEDICAID ==
[2024-09-17 14:45] LABS: HCT 43.9 % (37.2-46.3); HGB 14.4 g/dL (12.0-15.0); MCH 29.6 pg (27.0-32.0); MCHC 32.8 g/dL (32.0-37.0); MCV 90.1 FL (80.0-97.0); Mean Platelet Volume 9.4 FL (9.5-12.2); NRBC Per 100 WBC 0 X 10*3/uL (0.00-0.01); Platelet Count 312 X 10*3/uL (140-440); RBC 4.87 X 10*6/uL (4.10-5.20); RDW 13.9 % (11.5-14.5); WBC 4.83 X 10*3/uL (4.50-10.00)
[2024-09-17 15:12] LABS: Estradiol 48.8 pg/mL; T4, Free (Free Thyroxine) 0.77 ng/dL (0.80-1.80)
[2024-09-17 18:13] LABS: Follicle Stimulating Hormone 37.1 mIU/mL
== END | disposition home or self-care (01) ==
LOC: LABWHC1 08:43
PROVIDERS: ATTEND Obstetrics & Gynecology
DX: N95.1 Menopausal and female climacteric states (principal); N95.2 Postmenopausal atrophic vaginitis; R53.83 Other fatigue
CPT/HCPCS: 36415; 82306; 82607; 82670; 83001; 84144; 84403; 84439; 84443; 84481; 85027

== ENCOUNTER → 2025-01-04 | Outpatient (CLI) | payer MEDICAID ==
--- NOTE | 2025-01-04 21:07 | BD ---
EXAMINATION TYPE: Axial Bone Density DATE OF EXAM: 01/04/2025 CLINICAL HISTORY: 59 years old Female. ICD-10 CODE: Z78.0 MENOPAUSAL , Additional History: Height: 65 Weight: 135 FRAX RISK QUESTIONS: Family History (Parent hip fracture): no History of Fracture in Adulthood: no Secondary Osteoporosis: no RISK FACTORS HISTORY OF: Surgery to Spine/Hip(right/left)/Wrist (right/left): no MEDICATIONS: Thyroid Medications: yes Which medication: Levothyroxine How Lon+ years Osteoporosis Medications: no EXAM MEASUREMENTS: Bone mineral densitometry was performed using the [employer] System. Bone mineral density as measured about the Lumbar spine is: ----- L1-L4(G/cm2): 1.128 T Score Values are as follows: ----- L1: -1.6 ----- L2: -0.1 ----- L3: -0.1 ----- L4: 0.0 ----- L1-L4: -0.4 Z Score Values are as follows: ----- L1: -0.1 ----- L2: 1.3 ----- L3: 1.4 ----- L4: 1.4 ----- L1-L4: 1.0 Bone mineral density has: Increased 16.6% since study of: 01/23/2016 Bone mineral density about the R hip (g/cm2): 1.013 Bone mineral density about the L hip (g/cm2): 0.937 T Score values are as follows: -----R Neck: -0.3 -----L Neck: -1.2 -----R Total: 0.0 -----L Total: -0.6 Z Score values are as follows: -----R Neck: 1.1 -----L Neck: 0.2 -----R Total: 1.1 -----L Total: 0.5 Bone mineral density has: Increased 2.0% since study of: 01/23/2016 FRAX%s: The graph provided illustrates a 3.6% chance for a major osteoporotic fx and a 0.5% chance fo r the hips probability for fx in 10 years time. IMPRESSION: Osteopenia (T Score between -2.5 and -1). There is slightly increased risk of fracture and the patient may be considered for treatment. Re-Screen 2-5 years. NOTE: T-SCORE=SD OF THE YOUNG ADULT MEAN. [facility], , 01/04/2025 9:05 PM
== END | disposition home or self-care (01) ==
LOC: RADBDWWP 14:46
PROVIDERS: ATTEND Family Medicine
DX: M85.89 Other specified disorders of bone density and structure, multiple sites (principal); Z78.0 Asymptomatic menopausal state
CPT/HCPCS: 77080

== ENCOUNTER → 2025-01-15 | Outpatient (CLI) | payer MEDICAID ==
--- NOTE | 2025-01-15 08:02 | MM ---
Reason for Exam: Screening (asymptomatic). Last mammogram was performed 1 year(s) and 1 month(s) ago. Patient History: Menarche at age 10. First Full-Term at age 16. Postmenopausal. Currently using Estrogen, beginning at age 49 for 4 years. Currently using Progesterone, beginning at age 45 for 4 years, 2 months. Risk Values: Laney 5 year model risk: 1.1%. NCI Lifetime model risk: 5.2%. Prior Study Comparison: 06/09/2018 Bilateral Screening Mammogram, [facility]. 07/22/2019 Bilateral Screening Mammogram, [facility]. 09/16/2020 Bilateral Screening Mammogram, [facility]. 11/08/2021 Bilateral MG 3D screening mammo w/cad, [facility]. 11/20/2022 Bilateral MG 3D screening mammo w/cad, [facility]. 12/18/2023 Bilateral MG 3D screening mammo w/cad, [facility]. Tissue Density: The breasts are heterogeneously dense, which may obscure small masses. Findings: Analyzed By CAD. Medial asymmetric density left CC view anterior depth does not persist on the nipple in profile view. Findings compatible with superimposition shadow. Areas of asymmetric density remain unchanged. There is no suspicious group of microcalcifications or new suspicious mass in either breast. Overall Assessment: Benign, BI-RAD 2 Management: Screening Mammogram of both breasts in 1 year. Patient should continue monthly self-breast exams. A clinical breast exam by your physician is recommended on an annual basis. This exam should not preclude additional follow-up of suspicious palpable abnormalities. Note on Laney scores and lifetime risk: 1. A Laney score greater than 3% is considered moderate risk. If this is the case, consider specialist referral to assess eligibility for a risk reducing agent. 2. If overall lifetime risk for the development of breast cancer is 20% or higher, the patient may qualify for future screening with alternating mammogram and breast MRI. [facility], , 01/15/2025 7:59 AM. Electronically signed and approved by: Lamont Yeh M.D. Radiologist
== END | disposition home or self-care (01) ==
LOC: RADMAMWWP 07:04
PROVIDERS: ATTEND Family Medicine
DX: Z12.31 Encounter for screening mammogram for malignant neoplasm of breast (principal); R92.333 Mammographic heterogeneous density, bilateral breasts; Z78.0 Asymptomatic menopausal state
CPT/HCPCS: 77063; 77067